=== PATIENT | female | born 1975 | race Caucasian/White ===

== ENCOUNTER → 2018-06-12 | Outpatient (CLI) | payer OTHER ==
--- NOTE | 2018-06-12 16:20 | RAD ---
Single view pelvis and two-view left hip dated 06/12/2018. No comparison available. Clinical indication: Hip pain and clicking. FINDINGS: Single AP view pelvis shows normal bony alignment. No displaced fracture. No acute osseous or articular abnormality. Mild hypertrophic change the bilateral hip joint and pubic symphysis and bilateral SI joint. 2 views left hip show normal bony alignment. No displaced fracture. No acute osseous or articular abnormality. No periostitis or bone destruction. IMPRESSION: 1. No acute radiographic abnormality. 2. Mild degenerative changes as described. Electronically signed by: Rajeev Chun MD (06/12/2018 4:17 PM) [id number]
== END | disposition home or self-care (01) ==
LOC: RAD 15:42
PROVIDERS: ATTEND Physician Assistant Medical
DX: M16.12 Unilateral primary osteoarthritis, left hip (principal)
CPT/HCPCS: 73502

== ENCOUNTER 2018-12-08 20:21 | Emergency (ER) | payer OTHER ==
[~2018-12-08] VITALS: Ht 182.9 cm; Wt 113.4 kg
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
[2018-12-08] MEDS: MVI, ADULT NO.4 WITH VIT K 10 ML, FOLIC ACID SYRINGE for ER 1 MG, THIAMINE INJ 100 MG i... IV ONE ×4 (22:00)
[2018-12-08 22:47] LABS: AMPHETAMINE/METHAMPHETAMINE NEG (NEG); BARBITURATES NEG (NEG); BENZODIAZEPINES NEG (NEG); CANNABINOIDS NEG (NEG); COCAINE NEG (NEG); METHADONE NEG (NEG); OPIATES NEG (NEG); PHENCYCLIDINE NEG (NEG)
[2018-12-08 22:49] LABS: BACTERIA,URINE 0 /HPF (0-FEW); BILIRUBIN,URINE NEG (NEG); CLARITY,URINE CLEAR; COLOR,URINE YELLOW; GLUCOSE,URINE NEG (NEG); NITRITE,URINE NEG (NEG); RBC,URINE 0 /HPF (0-2); SQUAMOUS EPITHELIAL CELL,UR OCC /LPF; UROBILINOGEN,URINE 0.2 mg/dL (0.2 mg/dL); WBC,URINE OCC /HPF (0-4)
[2018-12-08] MEDS ORDERED: FOLIC ACID 5 MG/ML SYRINGE for ER IV ONE (23:03)
[2018-12-08] MEDS ORDERED: MVI, ADULT NO.4 WITH VIT K 10 ML VIAL IV ONE (23:03)
[2018-12-08] MEDS ORDERED: THIAMINE 200 MG/2 ML VIAL. IV ONE (23:03)
[2018-12-08] MEDS: IV RINGERS SOLUTION,LACTATED 1,000 ML IV SCH (23:12)
[2018-12-08] MEDS: MORPHINE SULFATE 10 MG/ML SYRINGE. SQ ONE (23:13)
[2018-12-08 23:14] LABS: BASO # 0.1 x10^3/uL (0.0-0.2); BASO % 1 % (0-3); EOS # 0.2 x10^3/uL (0.0-0.7); EOS % 2 % (0-3); HEMATOCRIT 46.3 % (36.0-47.0); HEMOGLOBIN 15.5 g/dL (12.0-15.5); LYMPH # 1.8 x10^3/uL (1.0-4.8); LYMPH % 16 % (24-48); MEAN CORPUSCULAR HEMOGLOBIN 30 pg (25-35); MEAN CORPUSCULAR HGB CONC 34 g/dL (31-37); MEAN CORPUSCULAR VOLUME 89 fL (79-100); MONO # 0.6 x10^3/uL (0.0-1.1); MONO % 5 % (0-9); NEUT # 8.7 x10^3uL (1.8-7.7); NEUT % 77 % (31-73); PLATELET COUNT 258 x10^3/uL (140-400); RED BLOOD COUNT 5.21 x10^6/uL (3.50-5.40); RED CELL DISTRIBUTION WIDTH 13.8 % (11.5-14.5); WHITE BLOOD COUNT 11.3 x10^3/uL (4.0-11.0)
[2018-12-08] MEDS: DIPHTH,PERTUSS(ACELL),TET TOX 0.5 ML DISP.SYRIN. VAX IM ONE (23:14)
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
[2018-12-08 23:28] LABS: ALBUMIN 3.6 g/dL (3.4-5.0); CREATININE 0.8 mg/dL (0.6-1.0); DIRECT BILIRUBIN 0.1 mg/dL (0.0-0.2); GFR 78.3; POTASSIUM 3.7 mmol/L (3.5-5.1); TOTAL BILIRUBIN 0.4 mg/dL (0.2-1.0); TOTAL PROTEIN 7.3 g/dL (6.4-8.2)
[2018-12-09] MEDS ORDERED: HYDR-1179 PO (00:09)
[2018-12-09] MEDS: ONDANSETRON PF 4 MG/2 ML VIAL. IV ONE (00:10)
[2018-12-09] MEDS ORDERED: OXYC1TAB15 PO (00:38)
[2018-12-09 00:40] VITALS: BP 146/86
--- NOTE | 2018-12-09 01:34 | EKG ---
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 Electronically Signed On 12-11-2018 16:13:54 CDT by Skip Garg
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
== END 2018-12-09 00:40 | disposition home or self-care (01) ==
LOC: ER 20:21 → EEVIPCON 20:21 → ER 12-09 00:40
DX: S70.01XA Contusion of right hip, initial encounter (principal); S00.83XA Contusion of other part of head, initial encounter; R07.89 Other chest pain; Y04.0XXA Assault by unarmed brawl or fight, initial encounter; Y93.89 Activity, other specified; Y92.89 Other specified places as the place of occurrence of the external cause; Y99.8 Other external cause status
CPT/HCPCS: 29505; 36415; 70450; 70486; 71046; 72125; 72170; 73502; 80048; 80076; 80307; 81001; 82550; 83690; 83735; 84443; 84484; 85025; 85379; 85610; 85730; 90471; 90715; 93005; 96365; 96372; 96375; G0480; J2270; J2405; J7120; 99285-25